=== PATIENT | male | born 1965 | race Caucasian/White ===

== ENCOUNTER → 2017-04-15 | Outpatient (CLI) | payer OTHER | LOC: BMCIMAGING 17:10 | PROVIDERS: ATTEND Family Medicine | DX: J02.9 Acute pharyngitis, unspecified (principal); M47.812 Spondylosis without myelopathy or radiculopathy, cervical region ==

== ENCOUNTER 2017-07-25 17:08 | Emergency (ER) | payer OTHER ==
[2017-07-25 17:15] VITALS: O2SAT 96
--- NOTE | 2017-07-25 17:43 | EDPHY ---
H & P Time Seen by Provider: 07/25/17 17:24 HPI/ROS: CHIEF COMPLAINT: Bilateral hand shakiness HISTORY OF PRESENT ILLNESS: 52-year-old male with a history of liver cancer presents with bilateral hand shakiness. Onset of a resting tremor in his hands yesterday. He has had the tremor before and the tremor is associated with an elevated ammonia level. He is currently treated for liver cancer at [facility]. 3 weeks ago he received a dose of immunotherapy. Laboratory studies were unremarkable at that time. His LFTs are reportedly abnormal with a bilirubin of 3. He has a 2.5 cm tumor in the liver, which has been stable for some time. Recently he has not been taking his lactulose as prescribed. He is supposed to take enough lactulose to have 3 bowel movements a day, but has decreased his lactulose dosing and has been having 1 bowel movement a day for quite some time. He has also been drinking less water than usual. No abdominal pain, nausea, vomiting. REVIEW OF SYSTEMS: Constitutional: No fever, no recent illness Eyes: No visual changes ENT: No sore throat Respiratory: No cough, no shortness of breath Cardiac: No chest pain Gastrointestinal: No nausea, no vomiting, no abdominal pain Genitourinary: no dysuria Musculoskeletal: No leg pain, no change in swelling Skin: No rash Neurological: No headache, no weakness Psychiatric: anxiety Past Medical/Surgical History: Liver cancer Hepatitis-C Social History: Smoking Status: Former smoker Physical Exam: General Appearance: Alert, pleasant Eyes: Pupils equal and round, no scleral icterus ENT, Mouth: Mucous membranes moist Neck: Normal inspection Respiratory: Lungs are clear to auscultation Cardiovascular: Regular rate and rhythm Gastrointestinal: Abdomen is soft and nontender, no ascites Neurological: A&O, nonfocal, normal gait Skin: Warm and dry, no rash Extremities: Nontender, 1+ edema Psychiatric: Mood and affect normal Constitutional: Initial Vital Signs Temperature (C) 36.7 C 07/25/17 17:12 Heart Rate 118 H 07/25/17 17:12 Respiratory Rate 20 07/25/17 17:12 Blood Pressure 120/96 H 07/25/17 17:12 O2 Sat (%) 96 07/25/17 17:12 O2 Delivery Mode Room Air Allergies/Adverse Reactions: No Known Allergies Allergy (Verified 07/25/17 17:12) Home Medications: Medication Instructions Recorded Furosemide [Lasix] 40 mg PO DAILY 05/14/15 Lactosium 05/14/15 Omeprazole [Prilosec 20 mg] 20 mg PO DAILY 05/14/15 Rifaximin [Xifaxan 200mg (RX)] 200 mg PO TID 05/14/15 Medical Decision Making ED Course/Re-evaluation: IV normal saline 1 L given. Laboratory results discussed with patient. Fortunately, the ammonia level is normal today. LFTs today are similar to LFTs on 05/07/2017. Tremor improved after IV hydration. He was encouraged to use lactulose as prescribed. Will f/u with oncologist. Differential Diagnosis: includes though not limited to hepatic encehalopathy, alcohol withdrawal, anxiety, stimulant usage. - Data Points Laboratory Results: Laboratory Results 07/25/17 18:00 07/25/17 18:00 Medications Given: Discontinued Medications Sodium Chloride (Ns) 1,000 mls @ 0 mls/hr IV ONCE ONE PRN Reason: Wide Open Stop: 07/25/17 18:20 Last Admin: 07/25/17 18:25 Dose: 1,000 mls Departure - Departure Disposition: Home, Routine, Self-Care Clinical Impression: Tremor of both hands Condition: Good Instructions: Tremors (ED) Additional Instructions: Drink plenty of fluids. Take lactulose as prescribed, with a goal have 3 bowel movements a day. Follow-up with your physician on Thursday. Return for worsening symptoms or any concerns. Referrals: Steffanie Ferrer MD [Primary Care Provider] - As per Instructions
[2017-07-25] MEDS ORDERED: NS 1,000 ML IV ONE (18:19)
[2017-07-25 18:20] LABS: % IMMATURE GRANULYOCYTES 0.2 % (0.0-1.1); ABSOLUTE IMMATURE GRANULOCYTES 0.01 10^3/uL (0.00-0.10); ADD DIFF? NO; ADD MORPH? NO; ADD SCAN? NO; ATYPICAL LYMPHOCYTE FLAG 10 (0-99); FRAGMENT RBC FLAG 20 (0-99); HEMATOCRIT 32.5 % (40.0-51.0); HEMOGLOBIN 10.5 g/dL (13.7-17.5); LEFT SHIFT FLG 0 (0-99); LIPEMIA HEMOLYSIS FLAG 80 (0-99); MEAN CELL HEMOGLOBIN 28.2 pg (27.9-34.1); MEAN CELL HEMOGLOBIN CONCENTR. 32.3 g/dL (32.4-36.7); MEAN CELL VOLUME 87.1 fL (81.5-99.8); PLATELET CLUMPS FLAG 0 (0-99); PLATELET COUNT 94 10^3/uL (150-400); RED BLOOD CELL COUNT 3.73 10^6/uL (4.40-6.38); RED CELL DISTRIBUTION WIDTH 17.1 % (11.5-15.2)
[2017-07-25 18:53] LABS: ALANINE AMINOTRANSFERASE 57 IU/L (21-72); ALBUMIN 2.7 g/dL (3.5-5.0); ALKALINE PHOSPHATASE 128 IU/L (38-126); ANION GAP 8 mEq/L (8-16); ASPARTATE AMINOTRANSFERASE 71 IU/L (17-59); BILIRUBIN,TOTAL 3.2 mg/dL (0.1-1.4); BILIRUBIN-CONJUGATED 0.9 mg/dL (0.0-0.5); BILIRUBIN-UNCONJUGATED 2.3 mg/dL (0.0-1.1); CALCIUM 8.8 mg/dL (8.5-10.4); CARBON DIOXIDE 22 mEq/l (22-31); CHLORIDE 110 mEq/L (97-110); CREATININE 0.8 mg/dL (0.7-1.3); GLOMERULAR FILTRATION RATE > 60; GLUCOSE 105 mg/dL (70-100); POTASSIUM 3.6 mEq/L (3.5-5.2); SODIUM 140 mEq/L (134-144); TOTAL PROTEIN 6.7 g/dL (6.3-8.2)
[2017-07-25 20:28] VITALS: BP 145/82; PULSE 98; RESP 20; TEMP 97.9
== END 2017-07-25 20:28 | disposition home or self-care (01) ==
DX: R25.1 Tremor, unspecified (principal); Z85.05 Personal history of malignant neoplasm of liver; Z87.891 Personal history of nicotine dependence
CPT/HCPCS: 96360; 99284; J1642

== ENCOUNTER 2017-08-28 15:59 | Inpatient (IN) | payer OTHER ==
[2017-08-28] MEDS ORDERED: NS 1,000 ML IV ONE ×4 (16:50)
--- NOTE | 2017-08-28 16:52 | EDPHY ---
H & P Stated Complaint: ABD PAIN/FEVER X 2 DAYS/HX CIRRHOSIS Time Seen by Provider: 08/28/17 16:15 HPI/ROS: CHIEF COMPLAINT: Abdominal pain, fever HISTORY OF PRESENT ILLNESS: The patient has a history of hepatitis, cirrhosis and liver cancer currently receiving chemotherapy at the [facility]. He presents to the ED with 2 days of atypical abdominal pain, fever, nausea and vomiting. The patient reports moderate to severe pain in his right lower quadrant. Past surgical history is significant for cholecystectomy and hernia repair surgery. The patient denies fever cough or congestion. The patient reportedly has been doing relatively well with his chemotherapy as an outpatient. He has not had a recent hospitalization. The patient denies dysuria but does report intermittent bouts of constipation and loose stool. REVIEW OF SYSTEMS: A comprehensive 10 point review of systems is otherwise negative aside from elements mentioned in the history of present illness. Source: Patient Exam Limitations: No limitations - Personal History Current Tetanus/Diphtheria Vaccine: Yes Tetanus Vaccine Date: 2005 - Medical/Surgical History Hx Asthma: No Hx Chronic Respiratory Disease: No Hx Diabetes: No Hx Cardiac Disease: No Hx Renal Disease: No Hx Cirrhosis: Yes Hx Alcoholism: No Hx HIV/AIDS: No Hx Splenectomy or Spleen Trauma: No Other PMH: Hep C. liver failure - Social History Smoking Status: Former smoker - Physical Exam Exam: General Appearance: Alert, appears uncomfortable Eyes: Pupils equal and round no pallor or injection ENT, Mouth: Dry mucous membranes Respiratory: There are no retractions, lungs are clear to auscultation Cardiovascular: Regular rate and rhythm Gastrointestinal: Distended, moderate tenderness to palpation in the right lower quadrant Neurological: A&O, normal motor function, normal sensory exam, normal cranial nerves Skin: Warm and dry, no rashes Musculoskeletal: Neck is supple nontender Extremities: symmetrical, full range of motion Constitutional: Initial Vital Signs Temperature (C) 39.2 C H 08/28/17 16:12 Heart Rate 136 H 08/28/17 16:12 Respiratory Rate 20 08/28/17 16:12 Blood Pressure 133/72 H 08/28/17 16:12 O2 Sat (%) 96 08/28/17 16:12 O2 Delivery Mode Room Air Allergies/Adverse Reactions: No Known Allergies Allergy (Verified 08/28/17 16:11) Home Medications: Medication Instructions Recorded Furosemide [Lasix] 40 mg PO DAILY 05/14/15 Lactosium 05/14/15 Omeprazole [Prilosec 20 mg] 20 mg PO DAILY 05/14/15 Rifaximin [Xifaxan 200mg (RX)] 200 mg PO TID 05/14/15 Medical Decision Making - Diagnostics Imaging Results: Imaging Impressions Abdomen Ultrasound 08/28/17 17:33 Impression: 1. Appendix not identified. 2. Small ascites. Results called to Dr. Kraig Parrish on 08/28/2017. ED Course/Re-evaluation: The patient presents to the ED with 2 days of fever and acute abdominal pain. The patient is noted to have fairly significant tenderness to palpation in the right lower quadrant. The patient had an IV established. In the ER, blood cultures x2 obtained. The patient had a nondiagnostic abdominal ultrasound. The patient was taken for CT scan of the abdomen pelvis which demonstrates an ascending colitis without evidence of appendicitis, perforation or obstruction. The patient does have evidence of sepsis with SIRS criteria (tachycardia, tachypnea and fever) + infection (ascending colitis). The patient's initial venous lactate was elevated at 2.7. The patient received IV fluid rehydration. The patient had no hypotension throughout his stay in the emergency department. A repeat lactic acid has been ordered. The patient had blood cultures x2 and his was started broad-spectrum antibiotics. The patient had an IV IV fentanyl and Dilaudid for pain management. The patient 's tachycardia did improve after IV fluids. Differential Diagnosis: Differential diagnosis considered includes severe sepsis, septic shock, appendicitis, perforation, obstruction, choledocholithiasis, colitis - Data Points Laboratory Results: Laboratory Results 08/28/17 16:35 08/28/17 16:35 08/28/17 08/28/17 08/28/17 19:25 16:53 16:35 WBC RBC Hgb Hct MCV MCH MCHC RDW Plt Count MPV Neut % (Auto) Lymph % (Auto) [place] % (Auto) Eos % (Auto) Baso % (Auto) Nucleat RBC Rel Count Absolute Neuts (auto) Absolute Lymphs (auto) Absolute Monos (auto) Absolute Eos (auto) Absolute Basos (auto) Absolute Nucleated RBC Immature Gran % Immature Gran # PT 26.4 SEC H SEC (12.0-15.0) INR 2.40 H (0.83-1.16) APTT 51.4 SEC H SEC (23.0-38.0) VBG Lactic Acid 2.5 mmol/L H mmol/L 2.7 mmol/L H mmol/L (0.7-2.1) (0.7-2.1) Sodium Potassium Chloride Carbon Dioxide Anion Gap BUN Creatinine Estimated GFR Glucose Calcium Total Bilirubin Conjugated Bilirubin Unconjugated Bilirubin AST ALT Alkaline Phosphatase Total Protein Albumin Lipase 08/28/17 08/28/17 16:35 16:35 WBC 7.57 10^3/uL 10^3/uL (3.80-9.50) RBC 3.56 10^6/uL L 10^6/uL (4.40-6.38) Hgb 10.3 g/dL L g/dL (13.7-17.5) Hct 30.7 % L % (40.0-51.0) MCV 86.2 fL fL (81.5-99.8) MCH 28.9 pg pg (27.9-34.1) MCHC 33.6 g/dL g/dL (32.4-36.7) RDW 16.9 % H % (11.5-15.2) Plt Count 55 10^3/uL L 10^3/uL (150-400) MPV TNP Neut % (Auto) 87.6 % H % (39.3-74.2) Lymph % (Auto) 3.2 % L % (15.0-45.0) [place] % (Auto) 8.5 % % (4.5-13.0) Eos % (Auto) 0.1 % L % (0.6-7.6) Baso % (Auto) 0.1 % L % (0.3-1.7) Nucleat RBC Rel Count 0.0 % % (0.0-0.2) Absolute Neuts (auto) 6.63 10^3/uL H 10^3/uL (1.70-6.50) Absolute Lymphs (auto) 0.24 10^3/uL L 10^3/uL (1.00-3.00) Absolute Monos (auto) 0.64 10^3/uL 10^3/uL (0.30-0.80) Absolute Eos (auto) 0.01 10^3/uL L 10^3/uL (0.03-0.40) Absolute Basos (auto) 0.01 10^3/uL L 10^3/uL (0.02-0.10) Absolute Nucleated RBC 0.00 10^3/uL 10^3/uL (0-0.01) Immature Gran % 0.5 % % (0.0-1.1) Immature Gran # 0.04 10^3/uL 10^3/uL (0.00-0.10) PT INR APTT VBG Lactic Acid Sodium 135 mEq/L mEq/L (134-144) Potassium 3.3 mEq/L mEq/L (3.3-5.0) Chloride 106 mEq/L mEq/L (97-110) Carbon Dioxide 20 mEq/l L mEq/l (22-31) Anion Gap 9 mEq/L mEq/L (8-16) BUN 12 mg/dL mg/dL (7-23) Creatinine 0.7 mg/dL mg/dL (0.7-1.3) Estimated GFR > 60 Glucose 108 mg/dL H mg/dL (70-100) Calcium 7.7 mg/dL L mg/dL (8.5-10.4) Total Bilirubin 4.2 mg/dL H mg/dL (0.1-1.4) Conjugated Bilirubin 1.6 mg/dL H mg/dL (0.0-0.5) Unconjugated Bilirubin 2.6 mg/dL H mg/dL (0.0-1.1) AST 70 IU/L H IU/L (17-59) ALT 77 IU/L H IU/L (21-72) Alkaline Phosphatase 126 IU/L IU/L (38-126) Total Protein 6.0 g/dL L g/dL (6.3-8.2) Albumin 2.6 g/dL L g/dL (3.5-5.0) Lipase 74 IU/L IU/L (23-300) Medications Given: Discontinued Medications Fentanyl (Sublimaze) 100 mcg IVP EDNOW ONE Stop: 08/28/17 18:15 Last Admin: 08/28/17 18:17 Dose: 100 mcg Fentanyl (Sublimaze) 100 mcg IVP EDNOW ONE Stop: 08/28/17 19:33 Last Admin: 08/28/17 19:33 Dose: 100 mcg Sodium Chloride (Ns) 1,000 mls @ 0 mls/hr IV EDNOW ONE; Wide Open PRN Reason: Protocol Stop: 08/28/17 16:51 Last Admin: 08/28/17 17:03 Dose: 1,000 mls Sodium Chloride (Ns) 1,000 mls @ 0 mls/hr IV EDNOW ONE; Wide Open PRN Reason: Protocol Stop: 08/28/17 16:51 Last Admin: 08/28/17 17:04 Dose: 1,000 mls Ketorolac Tromethamine (Toradol) 15 mg IVP EDNOW ONE Stop: 08/28/17 17:03 Last Admin: 08/28/17 17:05 Dose: 15 mg Departure - Departure Disposition: [facility] Inpatient Acute Clinical Impression: Severe sepsis, Colitis, Cirrhosis, Hepatic cancer Condition: Fair Referrals: Steffanie Ferrer MD [Primary Care Provider] - As per Instructions
[2017-08-28] MEDS ORDERED: KETOROLAC 15 MG/1 ML SDV ONE ×2 (16:59)
[2017-08-28 17:01] LABS: PLATELET COUNT 55 10^3/uL (150-400)
[2017-08-28] MEDS ORDERED: KETOROLAC 15 MG/1 ML SDV IVP ONE ×2 (17:02)
[2017-08-28 17:08] LABS: INR 2.4 (0.83-1.16); PROTIME(PATIENT) 26.4 SEC (12.0-15.0)
[2017-08-28] MEDS ORDERED: fentaNYL 100 MCG/2 ML INJ IVP ONE ×4 (18:14→19:32)
[2017-08-28] MEDS ORDERED: IOPAMIDOL (ISOVUE-300) 100 ML BTL ONE ×2 (18:36)
[2017-08-28] MEDS ORDERED: ERTAPENEM 1 GM in NS 100 ML IV ONE (19:25)
[2017-08-28] MEDS ORDERED: ONDANSETRON 4 MG/2 ML VIAL IVP PRN ×2 (22:18)
[2017-08-28] MEDS ORDERED: ONDANSETRON DISINTEGRATING 4 MG TAB PO PRN ×2 (22:18)
[2017-08-28] MEDS ORDERED: ACETAMINOPHEN 325 MG TAB PO PRN ×2 (22:18)
--- NOTE | 2017-08-28 22:25 | PDGENHP ---
History and Physical - Chief Complaint fever, abd pain - History of Present Illness 52 yo male with hx of hepatocellular carcinoma, hepatitis C, cirrhosis p/w several days of RLQ abd pain, fever, and poor PO. He has been receiving chemotherapy at the [place]. For about 2-3 days he has been having abd pain. First it was generalized but now mostly the RLQ. He has also felt feverish and has had N/V and poor oral intake. He denies any resp sx's including SOB, cough, congestion. Denies CP. He has chronic LE edema. He is having BM's. No urinary sx's PMHX: PER ABOVE PSHX: cholecystectomy Soc: from [place]. , former smoker FMhx: NC Labs/studies: CT Abd: Ascending colitis. No appendicitis, obstruction, or perforation CBC: thrombocytopenia INR: 2.45 Lactic Acid: elevated ED course: Ertapenem, IVF History Information - Allergies/Home Medication List Allergies/Adverse Reactions: No Known Allergies Allergy (Verified 08/28/17 16:11) Home Medications: Furosemide [Lasix] 40 mg PO DAILY 05/14/15 [Last Taken Unknown] Lactosium 05/14/15 [Last Taken Unknown] Omeprazole [Prilosec 20 mg] 20 mg PO DAILY 05/14/15 [Last Taken Unknown] Rifaximin [Xifaxan 200mg (RX)] 200 mg PO TID 05/14/15 [Last Taken Unknown] I have personally reviewed and updated: medical history, social history - Social History Smoking Status: Former smoker Review of Systems Review of Systems: ROS: 10pt was reviewed & negative except for what was stated in HPI & below Physical Exam Physical Exam: Temp Pulse Resp BP Pulse Ox 36.6 C 101 H 16 127/72 H 97 08/28/17 21:24 08/28/17 21:24 08/28/17 21:24 08/28/17 21:24 08/28/17 21:24 Constitutional: chronically ill appearing Eyes: PERRL, EOMI Ears, Nose, Mouth, Throat: dry mucous membranes Cardiovascular: regular rate and rhythym, edema Respiratory: no respiratory distress, no rales or rhonchi, clear to auscultation Gastrointestinal: tenderness (RLQ), No guarding, No rebound, No distension Skin: warm Musculoskeletal: full muscle strength, no muscle tenderness Neurologic: AAOx3 Psychiatric: interacting appropriately, not anxious, not encephalopathic Lab Data & Imaging Review 08/28/17 16:35 08/28/17 16:35 WBC 7.57 10^3/uL (3.80-9.50) 08/28/17 16:35 RBC 3.56 10^6/uL (4.40-6.38) L 08/28/17 16:35 Hgb 10.3 g/dL (13.7-17.5) L 08/28/17 16:35 Hct 30.7 % (40.0-51.0) L 08/28/17 16:35 MCV 86.2 fL (81.5-99.8) 08/28/17 16:35 MCH 28.9 pg (27.9-34.1) 08/28/17 16:35 MCHC 33.6 g/dL (32.4-36.7) 08/28/17 16:35 RDW 16.9 % (11.5-15.2) H 08/28/17 16:35 Plt Count 55 10^3/uL (150-400) L 08/28/17 16:35 MPV TNP 08/28/17 16:35 Neut % (Auto) 87.6 % (39.3-74.2) H 08/28/17 16:35 Lymph % (Auto) 3.2 % (15.0-45.0) L 08/28/17 16:35 [place] % (Auto) 8.5 % (4.5-13.0) 08/28/17 16:35 Eos % (Auto) 0.1 % (0.6-7.6) L 08/28/17 16:35 Baso % (Auto) 0.1 % (0.3-1.7) L 08/28/17 16:35 Nucleat RBC Rel Count 0.0 % (0.0-0.2) 08/28/17 16:35 Absolute Neuts (auto) 6.63 10^3/uL (1.70-6.50) H 08/28/17 16:35 Absolute Lymphs (auto) 0.24 10^3/uL (1.00-3.00) L 08/28/17 16:35 Absolute Monos (auto) 0.64 10^3/uL (0.30-0.80) 08/28/17 16:35 Absolute Eos (auto) 0.01 10^3/uL (0.03-0.40) L 08/28/17 16:35 Absolute Basos (auto) 0.01 10^3/uL (0.02-0.10) L 08/28/17 16:35 Absolute Nucleated RBC 0.00 10^3/uL (0-0.01) 08/28/17 16:35 Immature Gran % 0.5 % (0.0-1.1) 08/28/17 16:35 Immature Gran # 0.04 10^3/uL (0.00-0.10) 08/28/17 16:35 PT 26.4 SEC (12.0-15.0) H 08/28/17 16:35 INR 2.40 (0.83-1.16) H 08/28/17 16:35 APTT 51.4 SEC (23.0-38.0) H 08/28/17 16:35 VBG Lactic Acid 2.5 mmol/L (0.7-2.1) H 08/28/17 19:25 Sodium 135 mEq/L (134-144) 08/28/17 16:35 Potassium 3.3 mEq/L (3.3-5.0) 08/28/17 16:35 Chloride 106 mEq/L (97-110) 08/28/17 16:35 Carbon Dioxide 20 mEq/l (22-31) L 08/28/17 16:35 Anion Gap 9 mEq/L (8-16) 08/28/17 16:35 BUN 12 mg/dL (7-23) 08/28/17 16:35 Creatinine 0.7 mg/dL (0.7-1.3) 08/28/17 16:35 Estimated GFR > 60 08/28/17 16:35 Glucose 108 mg/dL (70-100) H 08/28/17 16:35 Calcium 7.7 mg/dL (8.5-10.4) L 08/28/17 16:35 Total Bilirubin 4.2 mg/dL (0.1-1.4) H 08/28/17 16:35 Conjugated Bilirubin 1.6 mg/dL (0.0-0.5) H 08/28/17 16:35 Unconjugated Bilirubin 2.6 mg/dL (0.0-1.1) H 08/28/17 16:35 AST 70 IU/L (17-59) H 08/28/17 16:35 ALT 77 IU/L (21-72) H 08/28/17 16:35 Alkaline Phosphatase 126 IU/L (38-126) 08/28/17 16:35 Total Protein 6.0 g/dL (6.3-8.2) L 08/28/17 16:35 Albumin 2.6 g/dL (3.5-5.0) L 08/28/17 16:35 Lipase 74 IU/L (23-300) 08/28/17 16:35 Assessment & Plan Assessment: #Ascending colitis, likely infectious #Advanced liver disease with coagulopathy, thrombocytopenia #pedal edema likely due to liver disease #SIRS criteria Plan: Admit Cont Ertapenem Gentle hydration hold Lasix for now Follow INR. f/u BCX full code
[2017-08-28] MEDS: oxyCODONE IR 5 MG TAB PO PRN ×2 (22:43)
--- NOTE | 2017-08-29 03:50 | PDMN ---
Medical Necessity Medical necessity: C/M review: est. > 2 MN LOS for eval and TX of acute and persistent ascending colitis, likely infectious, fevers, RLQ abdominal pain, SIRS requiring IV fluids in ED, ongoing IV Ertapenem, IV Morphine, comorbid advanced hepatocellular carcinoma with coagulopathy, thrombocytopenia, hx recent chemotherapy per H/P.
[2017-08-29] MEDS: oxyCODONE IR 5 MG TAB PO PRN ×8 (04:06→20:26)
[2017-08-29 06:07] LABS: PLATELET COUNT 52 10^3/uL (150-400)
[2017-08-29 06:20] LABS: INR 2.92 (0.83-1.16); PROTIME(PATIENT) 30.9 SEC (12.0-15.0)
[2017-08-29] MEDS ORDERED: RIFAXIMIN 200 MG TAB PO SCH ×2 (09:00)
[2017-08-29] MEDS ORDERED: PROTOCOL CALCIUM 1 DOSE IV PRN ×2 (13:57)
--- NOTE | 2017-08-29 14:22 | HOSPPROG ---
Hospitalist Progress Note Assessment/Plan: #Fever: colitis ascending/cecum on CT. May be related to Keytruda (last dose 10 days ago). Denies other infectious symptoms, no diarrhea. -blood cultures pending. Cont IV Cefepime, Flagyl -send off peritoneal studies to eval for SBP #Significant ascites: d/w Dr. Mcnulty. Will trial ileostomy bag per Dr. Mcnulty #HCC: followed by Dr. Tellez at [facility]. s/p TACE, chemo, on Keytruda #Hyperbilirubinemia: again may be due to Keytruda (most recently 2 per pt) #Hypocalcemia: check iCa #Cirrhosis: Rifaximin, lactulose. Hold diuretics with decreased PO, has mild distension #Anemia/thrombocytopenia: due to liver disease. h/o varices, denies any bleeding #Coagulopathy: due to cirrhosis, HCC #h/o esophageal varices: last EGD here, 2013. no active bleeding #Diet: ADAT #DVT ppx: SCDs #Disp: warrants inpatient admission with fever, requiring IV abx Subjective: abd pain improved today Objective: Vital Signs Temp Pulse Resp BP Pulse Ox 36.7 C 84 18 118/70 93 08/29/17 11:16 08/29/17 11:16 08/29/17 11:16 08/29/17 11:16 08/29/17 11:16 Laboratory Results 08/29/17 06:00 08/29/17 06:00 08/28/17 08/29/17 08/30/17 05:59 05:59 04:59 Intake Total 2450 Balance 2450 PT 30.9 SEC (12.0-15.0) H 08/29/17 06:00 INR 2.92 (0.83-1.16) H 08/29/17 06:00 - Physical Exam Constitutional: no apparent distress Eyes: icteric sclera Ears, Nose, Mouth, Throat: moist mucous membranes, dry mucous membranes Cardiovascular: regular rate and rhythym, no murmur, rub, or gallop Respiratory: no respiratory distress Gastrointestinal: normoactive bowel sounds, soft, non-tender abdomen, distension , No no palpable masses, No tenderness Genitourinary: no bladder fullness Skin: warm Musculoskeletal: full muscle strength Neurologic: AAOx3, CN II-XII Intact Psychiatric: interacting appropriately ICD10 Worksheet Patient Problems: Problems Problem Status Onset Cirrhosis Acute Colitis Acute Hepatic cancer Acute Severe sepsis Acute Ascites Active
[2017-08-29] MEDS: PANTOPRAZOLE SODIUM 40 MG TAB PO SCH ×2 (16:23)
[2017-08-29] MEDS ORDERED: CALCIUM GLUCONATE 50 ML IV ONE ×2 (16:27)
[2017-08-29] MEDS ORDERED: ERTAPENEM 1 GM in NS 100 ML IV SCH (18:00)
[2017-08-29] MEDS: CEFEPIME HCL 2 GM in D5W 100 ML IV SCH (20:29)
[2017-08-29] MEDS: RIFAXIMIN 550 MG TAB PO SCH ×2 (20:29)
[2017-08-30 04:45] LABS: PLATELET COUNT 73 10^3/uL (150-400)
[2017-08-30 04:53] LABS: INR 2.56 (0.83-1.16); PROTIME(PATIENT) 27.8 SEC (12.0-15.0)
[2017-08-30] MEDS: CEFEPIME HCL 2 GM in D5W 100 ML IV SCH (06:29)
[2017-08-30] MEDS: PANTOPRAZOLE SODIUM 40 MG TAB PO SCH ×2 (08:19)
[2017-08-30] MEDS: RIFAXIMIN 550 MG TAB PO SCH ×2 (08:19)
[2017-08-30] MEDS ORDERED: NON-FORMULARY NEW DRUG (Omeprazole [Prilosec 20 Mg] 20 MG) PO SCH ×2 (09:00)
[2017-08-30] MEDS ORDERED: CALCIUM GLUCONATE 50 ML IV ONE ×2 (10:02)
[2017-08-30 12:31] VITALS: BP 124/72; PULSE 83; RESP 17; TEMP 98.4; O2SAT 94
--- NOTE | 2017-08-30 14:12 | GDS ---
[f rep st] DISCHARGE SUMMARY DISCHARGE DIAGNOSES: 1. Fever. 2. Colitis of ascending/cecum. 3. Hepatocellular carcinoma on immunosuppression and chemo. 4. Hyperbilirubinemia. 5. Hypocalcemia. 6. Cirrhosis. 7. Anemia/thrombocytopenia. 8. Coagulopathy. HISTORY OF PRESENT ILLNESS: A pleasant 52-year-old male with history of HCC, cirrhosis, who was on Keytruda, as well as some sort of oral chemotherapy, presented with pain, fever, and poor p.o. intake. He is followed by Dr. Tellez at [facility]. He has had some abdominal pain, cramping, but mainly in the right lower quadrant. He has had some nausea, vomiting, nonbloody. No hematochezia or melena. Denied chest pain, shortness of breath. He has chronic lower extremity edema that is worse since being off his diuretics for 2 days. HOSPITAL COURSE BY PROBLEM: 1. Fever: Suspect secondary to colitis versus medication side effect. He is on Keytruda, which is an immunosuppressant, that can cause a side effect in itself. He has not had a fever in almost 48 hours. GI panel and blood cultures remain negative. Less likely CMV given minimal symptoms, but drawn before DC. Symptoms have improved on IV antibiotics. I will transition to Levaquin and Flagyl for a total of 7 days. He is to follow up with his primary chart writer at [facility]. 2. Mildly decompensated cirrhosis: He has been off his diuretics for a couple days with decreased p.o. intake. He may resume these. Resume rifaximin and lactulose. 3. Hyperbilirubinemia: Was elevated at 4.4 on admission, may be secondary to the Keytruda treated itself. This has trended down to 2.4 at the day of discharge. 4. HCC: Followed by Dr. Tellez, status post TAS chemo and on Keytruda. 5. Coagulopathy due to cirrhosis and hepatocellular carcinoma. PHYSICAL EXAM: VITAL SIGNS: Today, temperature 36.9, blood pressure 124/72, heart rate 80s, respirations 17, 94% on room air. GENERAL: Well appearing, smiling. HEENT: PERRLA. Moist mucous membranes. CV: Regular rate and rhythm. No murmurs, gallops, rubs. +2 lower extremity edema to the knee. LUNGS: Clear to auscultation. ABDOMEN: Soft, nontender. Mild distention. No tenderness. Positive bowel sounds. : No Bishop. No suprapubic tenderness. NEURO: 2 through 12 intact. PSYCH: Alert and oriented x3. MEDICATIONS: New medications: 1. Flagyl 500 mg t.i.d. 2. Levaquin 750 mg daily. 3. Oxycodone 5-10. FOLLOWUP: With Dr. Tellez at [facility]. Patient will call tomorrow morning. We will call patient if blood culture turns positive. Labs pending: CMV /[id number]/MODL MTDD
--- NOTE | 2017-08-30 14:12 | GDS ---
[f rep st] DISCHARGE SUMMARY DISCHARGE DIAGNOSES: 1. Fever. 2. Colitis of ascending/cecum. 3. Hepatocellular carcinoma on immunosuppression and chemo. 4. Hyperbilirubinemia. 5. Hypocalcemia. 6. Cirrhosis. 7. Anemia/thrombocytopenia. 8. Coagulopathy. HISTORY OF PRESENT ILLNESS: A pleasant 52-year-old male with history of HCC, cirrhosis, who was on Keytruda, as well as some sort of oral chemotherapy, presented with pain, fever, and poor p.o. intake. He is followed by Dr. Tellez at [facility]. He has had some abdominal pain, cramping, but mainly in the right lower quadrant. He has had some nausea, vomiting, nonbloody. No hematochezia or melena. Denied chest pain, shortness of breath. He has chronic lower extremity edema that is worse since being off his diuretics for 2 days. HOSPITAL COURSE BY PROBLEM: 1. Fever: Suspect secondary to colitis versus medication side effect. He is on Keytruda, which is an immunosuppressant, that can cause a side effect in itself. He has not had a fever in almost 48 hours. GI panel and blood cultures remain negative. Less likely CMV given minimal symptoms, but drawn before DC. Symptoms have improved on IV antibiotics. I will transition to Levaquin and Flagyl for a total of 7 days. He is to follow up with his primary mechanical project engineer at [facility]. 2. Mildly decompensated cirrhosis: He has been off his diuretics for a couple days with decreased p.o. intake. He may resume these. Resume rifaximin and lactulose. 3. Hyperbilirubinemia: Was elevated at 4.4 on admission, may be secondary to the Keytruda treated itself. This has trended down to 2.4 at the day of discharge. 4. HCC: Followed by Dr. Tellez, status post TAS chemo and on Keytruda. 5. Coagulopathy due to cirrhosis and hepatocellular carcinoma. PHYSICAL EXAM: VITAL SIGNS: Today, temperature 36.9, blood pressure 124/72, heart rate 80s, respirations 17, 94% on room air. GENERAL: Well appearing, smiling. HEENT: PERRLA. Moist mucous membranes. CV: Regular rate and rhythm. No murmurs, gallops, rubs. +2 lower extremity edema to the knee. LUNGS: Clear to auscultation. ABDOMEN: Soft, nontender. Mild distention. No tenderness. Positive bowel sounds. : No Bishop. No suprapubic tenderness. NEURO: 2 through 12 intact. PSYCH: Alert and oriented x3. MEDICATIONS: New medications: 1. Flagyl 500 mg t.i.d. 2. Levaquin 750 mg daily. 3. Oxycodone 5-10. FOLLOWUP: With Dr. Tellez at [facility]. Patient will call tomorrow morning. We will call patient if blood culture turns positive. Labs pending: CMV /[id number]/MODL MTDD
--- NOTE | 2017-08-30 15:47 | ASDISCHSUM ---
Discharge Information Plan Status:Home with No Needs Medically Cleared to Leave: Discharge Date:08/30/2017 02:21 PM CM D/C Disposition: ADT D/C Disposition:Home, Routine, Self-Care Projected Discharge Date:08/30/2017 02:21 PM Transportation at D/C: Discharge Delay Reason: Follow-Up Date:08/30/2017 02:21 PM Discharge Slot: Final Diagnosis: Placement Information Patient Contact Information Contact Name:JEANIE Relationship: Address:[address] City:[place] Alternate Phone: [facility]/Zip Code:[place] [address] Email: Financial Information Financial Class: Primary Plan Desc:MEDICARE INPATIENT Primary Plan Number:[id number] Secondary Plan Desc:ADRIANNE LUO POS HMO Secondary Plan Number:[id number] Assessment Information [facility] CM Progress Note CM Note CM Note Notes: Pt DC'd home today with no DC needs. Date Signed: 08/30/2017 03:46 PM Electronically Signed By:Kati Moore LCSW Intervention Information
--- NOTE | 2017-08-30 15:47 | ASDISCHSUM ---
Discharge Information Plan Status:Home with No Needs Medically Cleared to Leave: Discharge Date:08/30/2017 02:21 PM CM D/C Disposition: ADT D/C Disposition:Home, Routine, Self-Care Projected Discharge Date:08/30/2017 02:21 PM Transportation at D/C: Discharge Delay Reason: Follow-Up Date:08/30/2017 02:21 PM Discharge Slot: Final Diagnosis: Placement Information Patient Contact Information Contact Name:JEANIE Relationship: Address:[address] City:[place] Alternate Phone: [facility]/Zip Code:[place] [address] Email: Financial Information Financial Class: Primary Plan Desc:MEDICARE INPATIENT Primary Plan Number:[id number] Secondary Plan Desc:ADRIANNE LUO POS HMO Secondary Plan Number:[id number] Assessment Information [facility] CM Progress Note CM Note CM Note Notes: Pt DC'd home today with no DC needs. Date Signed: 08/30/2017 03:46 PM Electronically Signed By:Kati Moore LCSW Intervention Information
--- NOTE | 2017-08-30 15:47 | ASDISCHSUM ---
Discharge Information Plan Status:Home with No Needs Medically Cleared to Leave: Discharge Date:08/30/2017 02:21 PM CM D/C Disposition: ADT D/C Disposition:Home, Routine, Self-Care Projected Discharge Date:08/30/2017 02:21 PM Transportation at D/C: Discharge Delay Reason: Follow-Up Date:08/30/2017 02:21 PM Discharge Slot: Final Diagnosis: Placement Information Patient Contact Information Contact Name:JEANIE Relationship: Address:[address] City:[place] Alternate Phone: [facility]/Zip Code:[place] [address] Email: Financial Information Financial Class: Primary Plan Desc:MEDICARE INPATIENT Primary Plan Number:[id number] Secondary Plan Desc:ADRIANNE LUO POS HMO Secondary Plan Number:[id number] Assessment Information [facility] CM Progress Note CM Note CM Note Notes: Pt DC'd home today with no DC needs. Date Signed: 08/30/2017 03:46 PM Electronically Signed By:Kati Moore LCSW Intervention Information
== END 2017-08-30 14:21 | disposition home or self-care (01) | DRG 392 ==
LOC: F1N 21:10
PROVIDERS: ADMIT Family Medicine; ATTEND Internal Medicine
DX: K52.9 Noninfective gastroenteritis and colitis, unspecified (principal); C22.0 Liver cell carcinoma; K74.60 Unspecified cirrhosis of liver; K75.9 Inflammatory liver disease, unspecified; D69.6 Thrombocytopenia, unspecified; E83.51 Hypocalcemia; D68.4 Acquired coagulation factor deficiency; Z87.891 Personal history of nicotine dependence
CPT/HCPCS: 86644-90; 86645-90; 96365; J0610; J0692; J0696; J1335; J1642; J1885; J3010; Q9967

== ENCOUNTER 2017-09-14 22:08 | Inpatient (IN) | payer OTHER ==
[2017-09-14] MEDS ORDERED: HYDROmorphONE/DILAUDID 1 MG/ML INJ IVP ONE ×2 (22:23→23:25)
[2017-09-14] MEDS ORDERED: ONDANSETRON 4 MG/2 ML VIAL IVP ONE (22:23)
[2017-09-14] MEDS ORDERED: NS 1,000 ML IV ONE (22:24)
--- NOTE | 2017-09-14 22:30 | EDPHY ---
H & P Stated Complaint: R kidney stone? abd pain; CA Hx, has port HPI/ROS: HPI CHIEF COMPLAINT: Left flank pain sudden onset sharp stabbing. Radiating into groin. HISTORY OF PRESENT ILLNESS: This patient very pleasant 52-year-old male, history of liver CA, undergoes treatment at [facility], he presents emergency room sudden onset this evening of left flank pain it is left-sided sharp stabbing radiating into the left groin with associated nausea but no vomiting. States feels exactly like his previous kidney stone. He has no fever. He denies any significant abdominal pain except for left flank pain. Past Medical History: Liver CA undergoes treatment at [facility], kidney stone, hepatocellular cancer, colitis, cirrhosis, anemia, thrombocytopenia Past Surgical History: Right chest port Social History: Denies daily use drugs alcohol tobacco products. Family History: Noncontributory ROS REVIEW OF SYSTEMS: A comprehensive 10 point review of systems is otherwise negative aside from elements mentioned in the history of present illness. Exam Constitutional appears well nontoxic triage nursing summary reviewed, vital signs reviewed, awake/alert. Eyes normal conjunctivae and sclera, EOMI, PERRLA. HENT normal inspection, atraumatic, moist mucus membranes, no epistaxis, neck supple/ no meningismus, no raccoon eyes. Respiratory clear to auscultation bilaterally, normal breath sounds, no respiratory distress, no wheezing. Cardiovascular rate normal, regular rhythm, no murmur, no edema, distal pulses normal. Gastrointestinal soft, non-tender, no rebound, no guarding, normal bowel sounds, no distension, no pulsatile mass. Genitourinary tender palpation left CVA. Musculoskeletal no midline vertebral tenderness, full range of motion, no calf swelling, no tenderness of extremities, no meningismus, good pulses, neurovascularly intact. Skin pink, warm, & dry, no rash, skin atraumatic. Neurologic awake, alert and oriented x 3, AAOx3, moves all 4 extremities equally, motor intact, sensory intact, CN II-XII intact, normal cerebellar, normal vision, normal speech. Psychiatric normal mood/affect. Heme/Lymph/Immune no lymphadenopathy. Differential diagnosis includes but is not limited to and in no particular order : Bowel obstruction, appendicitis, gallbladder disease, diverticulitis, colitis , enteritis, perforated viscus, gastritis, GERD, esophagitis, urinary tract infection, pyelonephritis, kidney stones Medical Decision Making: Plan for this patient IV establishment IV fluid bolus , Dilaudid for pain control 1 mg, Zofran for nausea, check urinalysis, check abdominal blood work including lactic acid, CT abdomen pelvis without contrast for left flank pain. Re-evaluate. Re-evaluation: 1246: Patient to having ongoing left flank pain. He does have a 6 mm left ureteral stone with hydronephrosis. Rather severe. After multiple attempts to to control his pain, he still has ongoing left flank pain. Will admit him to the hospital service for pain control most likely Urology to see. Patient has extensive comorbidities. 0111: Spoke with Dr. Hargrove, with Urology plan on consult in the morning for this patient. Additionally I consulted hospitalist service Dr. Reed For Admission. She agrees to admit. Urine culture sent. 1 g IV Rocephin given. Urinalysis does not indicate infection however the patient is immunocompromised undergoing chemotherapy. Source: Patient - Personal History Current Tetanus/Diphtheria Vaccine: Yes Tetanus Vaccine Date: 2005 - Medical/Surgical History Hx Asthma: No Hx Chronic Respiratory Disease: No Hx Diabetes: No Hx Cardiac Disease: No Hx Renal Disease: No Hx Cirrhosis: Yes Hx Alcoholism: No Hx HIV/AIDS: No Hx Splenectomy or Spleen Trauma: No Other PMH: PMHx: Hep C; Liver Cancer, liver failure, kidney stones - Social History Smoking Status: Former smoker Constitutional: Initial Vital Signs Temperature (C) 35.8 C L 09/14/17 22:10 Heart Rate 102 H 09/14/17 22:10 Respiratory Rate 24 H 09/14/17 22:10 Blood Pressure 139/74 H 09/14/17 22:10 O2 Sat (%) 100 09/14/17 22:10 O2 Delivery Mode Room Air O2 (L/minute) 2 Allergies/Adverse Reactions: No Known Allergies Allergy (Verified 08/28/17 16:11) Home Medications: Medication Instructions Recorded Furosemide [Lasix 20 MG (*)] 20 mg PO DAILY 08/29/17 Lactulose [Enulose] 20 gm PO QID PRN 08/29/17 Omeprazole [Prilosec 20 mg] 40 mg PO DAILY 08/29/17 Rifaximin [Xifaxan] 550 mg PO BID 08/29/17 Lidocaine/Prilocaine [Emla Cream] 1 francis TP Q21D 09/15/17 Ondansetron Odt [Zofran Odt 4 mg 4 mg PO Q4 PRN #60 tab 09/15/17 (*)] Pembrolizumab [Keytruda] 0 mg IV Q21D 09/15/17 Spironolactone [Aldactone 25 MG 100 mg PO DAILY 09/15/17 (*)] Tamsulosin HCl [Flomax 0.4 MG (*)] 0.4 mg PO DAILY #10 cap 09/15/17 oxyCODONE IR [Oxycodone Ir (*)] 5 - 10 mg PO Q4 PRN #60 tab 09/15/17 traMADol [Ultram 50 mg (*)] 50 mg PO DAILY PRN 09/15/17 Medical Decision Making - Data Points Laboratory Results: Laboratory Results 09/15/17 05:00 09/15/17 05:00 Medications Given: Hydromorphone HCl (Dilaudid) 0.5 - 1 mg IVP Q2HRS PRN PRN Reason: Pain, Severe Unable to Take PO Stop: 09/25/17 02:28 Last Admin: 09/15/17 23:16 Dose: 1 mg Levofloxacin/Dextrose (Levaquin 500 Mg (Premix)) 100 mls @ 100 mls/hr IV Q24H [place] PRN Reason: Protocol Stop: 10/16/17 00:00 Last Admin: 09/16/17 00:04 Dose: 100 mls Sodium Chloride (Ns) 1,000 mls @ 75 mls/hr IV CONT [place] Stop: 03/14/18 02:29 Last Admin: 09/15/17 05:01 Dose: 1,000 mls Ketorolac Tromethamine (Toradol) 15 mg IVP Q6HRS PRN PRN Reason: Pain, Inflammatory Stop: 09/20/17 15:18 Last Admin: 09/15/17 21:15 Dose: 15 mg Lidocaine/Prilocaine (Emla Cream) 1 francis TP Q21D [facility] Stop: 03/14/18 12:59 Last Admin: 09/15/17 16:30 Dose: Not Given Oxycodone HCl (Oxycodone Ir) 5 - 10 mg PO Q3 PRN PRN Reason: Pain, Severe Able to Take PO Stop: 09/25/17 10:31 Last Admin: 09/15/17 15:12 Dose: 10 mg Rifaximin (Xifaxan) 550 mg PO BID [place] PRN Reason: Protocol Stop: 10/15/17 12:59 Last Admin: 09/15/17 21:13 Dose: 550 mg Spironolactone (Aldactone) 100 mg PO DAILY [facility] Stop: 03/14/18 12:59 Last Admin: 09/15/17 16:30 Dose: Not Given Discontinued Medications Hydromorphone HCl (Dilaudid) 1 mg IVP EDNOW ONE Stop: 09/14/17 22:24 Last Admin: 09/14/17 22:38 Dose: 1 mg Hydromorphone HCl (Dilaudid) 1 mg IVP EDNOW ONE Stop: 09/14/17 23:26 Last Admin: 09/14/17 23:31 Dose: 1 mg Hydromorphone HCl (Dilaudid) 1 mg IVP EDNOW ONE Stop: 09/15/17 00:46 Last Admin: 09/15/17 01:19 Dose: 1 mg Sodium Chloride (Ns) 1,000 mls @ 0 mls/hr IV EDNOW ONE; Wide Open PRN Reason: Protocol Stop: 09/14/17 22:25 Last Admin: 09/14/17 22:37 Dose: 1,000 mls Sodium Chloride (Ns) 1,000 mls @ 0 mls/hr IV ONCE ONE PRN Reason: Wide Open Stop: 09/15/17 00:21 Last Admin: 09/15/17 00:29 Dose: 1,000 mls Ceftriaxone Sodium/Dextrose (Rocephin 1 Gm (Premix)) 50 mls @ 100 mls/hr IV EDNOW ONE PRN Reason: Protocol Stop: 09/15/17 01:32 Last Admin: 09/15/17 01:18 Dose: 50 mls Ketorolac Tromethamine (Toradol) 15 mg IVP EDNOW ONE Stop: 09/14/17 23:56 Last Admin: 09/14/17 23:55 Dose: 15 mg Ondansetron HCl (Zofran) 4 mg IVP EDNOW ONE Stop: 09/14/17 22:24 Last Admin: 09/14/17 22:37 Dose: 4 mg Phytonadione (Vitamin K) 5 mg PO ONCE ONE Stop: 09/15/17 06:17 Last Admin: 09/15/17 10:40 Dose: Not Given Departure - Departure Disposition: [facility] Acute Clinical Impression: Flank pain, Kidney stone on left side Condition: Fair
[2017-09-14 22:58] LABS: % IMMATURE GRANULYOCYTES 0.5 % (0.0-1.1); ABSOLUTE IMMATURE GRANULOCYTES 0.02 10^3/uL (0.00-0.10); ADD DIFF? NO; ADD MORPH? NO; ADD SCAN? NO; ATYPICAL LYMPHOCYTE FLAG 0 (0-99); FRAGMENT RBC FLAG 20 (0-99); HEMATOCRIT 30.2 % (40.0-51.0); HEMOGLOBIN 9.7 g/dL (13.7-17.5); LEFT SHIFT FLG 0 (0-99); LIPEMIA HEMOLYSIS FLAG 80 (0-99); MEAN CELL HEMOGLOBIN CONCENTR. 32.1 g/dL (32.4-36.7); MEAN PLATELET VOLUME 13.2 fL (8.7-11.7); PLATELET CLUMPS FLAG 10 (0-99); PLATELET COUNT 114 10^3/uL (150-400); RED BLOOD CELL COUNT 3.47 10^6/uL (4.40-6.38); RED CELL DISTRIBUTION WIDTH 18.1 % (11.5-15.2)
[2017-09-14 23:03] LABS: ALANINE AMINOTRANSFERASE 49 IU/L (21-72); ALBUMIN 2.6 g/dL (3.5-5.0); ALKALINE PHOSPHATASE 139 IU/L (38-126); ANION GAP 9 mEq/L (8-16); ASPARTATE AMINOTRANSFERASE 54 IU/L (17-59); BILIRUBIN,TOTAL 2.6 mg/dL (0.1-1.4); BILIRUBIN-CONJUGATED 0.8 mg/dL (0.0-0.5); BILIRUBIN-UNCONJUGATED 1.8 mg/dL (0.0-1.1); CALCIUM 7.6 mg/dL (8.5-10.4); CARBON DIOXIDE 21 mEq/l (22-31); CHLORIDE 103 mEq/L (97-110); CREATININE 0.7 mg/dL (0.7-1.3); GLOMERULAR FILTRATION RATE > 60; GLUCOSE 188 mg/dL (70-100); POTASSIUM 3.3 mEq/L (3.5-5.2); SODIUM 133 mEq/L (134-144)
[2017-09-14 23:06] LABS: INR 2.08 (0.83-1.16); PROTIME(PATIENT) 23.5 SEC (12.0-15.0)
[2017-09-14 23:07] LABS: APTT 54.6 SEC (23.0-38.0)
[2017-09-14] MEDS ORDERED: KETOROLAC 15 MG/1 ML SDV ONE (23:53)
[2017-09-14] MEDS ORDERED: KETOROLAC 15 MG/1 ML SDV IVP ONE (23:55)
[2017-09-15] MEDS ORDERED: NS 1,000 ML IV ONE (00:20)
[2017-09-15 00:30] LABS: COLOR AMBER; LEUKOCYTE ESTERASE,URINE NEGATIVE (NEGATIVE); NITRITE,URINE NEGATIVE (NEGATIVE)
[2017-09-15 00:36] LABS: MUCUS 1+ /lpf (NONE-1+); RBC,URINE 50-182 /hpf (0-3)
[2017-09-15] MEDS ORDERED: HYDROmorphONE/DILAUDID 1 MG/ML INJ IVP ONE (00:45)
[2017-09-15] MEDS ORDERED: PROMETHAZINE HCL 25 MG/ML INJ IVP PRN (02:30)
[2017-09-15] MEDS ORDERED: LORazepam 2 MG/ML INJ IVP PRN (02:30)
[2017-09-15] MEDS ORDERED: ONDANSETRON 4 MG/2 ML VIAL IVP PRN (02:30)
[2017-09-15] MEDS ORDERED: NS 1,000 ML IV SCH (02:30)
[2017-09-15] MEDS ORDERED: ACETAMINOPHEN 325 MG TAB PO PRN (02:30)
[2017-09-15] MEDS: HYDROmorphONE/DILAUDID 1 MG/ML INJ IVP PRN ×7 (02:38→23:16)
[2017-09-15 05:29] LABS: % IMMATURE GRANULYOCYTES 0.5 % (0.0-1.1); ABSOLUTE IMMATURE GRANULOCYTES 0.02 10^3/uL (0.00-0.10); ADD DIFF? NO; ADD MORPH? NO; ADD SCAN? NO; ATYPICAL LYMPHOCYTE FLAG 10 (0-99); FRAGMENT RBC FLAG 20 (0-99); HEMATOCRIT 28.6 % (40.0-51.0); HEMOGLOBIN 9.2 g/dL (13.7-17.5); LEFT SHIFT FLG 0 (0-99); LIPEMIA HEMOLYSIS FLAG 80 (0-99); MEAN CELL HEMOGLOBIN 28.4 pg (27.9-34.1); MEAN CELL HEMOGLOBIN CONCENTR. 32.2 g/dL (32.4-36.7); MEAN CELL VOLUME 88.3 fL (81.5-99.8); MEAN PLATELET VOLUME 13.7 fL (8.7-11.7); PLATELET CLUMPS FLAG 0 (0-99); PLATELET COUNT 107 10^3/uL (150-400); RED BLOOD CELL COUNT 3.24 10^6/uL (4.40-6.38); RED CELL DISTRIBUTION WIDTH 18.1 % (11.5-15.2)
[2017-09-15 05:46] LABS: ANION GAP 5 mEq/L (8-16); CALCIUM 7.2 mg/dL (8.5-10.4); CARBON DIOXIDE 25 mEq/l (22-31); CHLORIDE 109 mEq/L (97-110); CREATININE 0.7 mg/dL (0.7-1.3); GLOMERULAR FILTRATION RATE > 60; GLUCOSE 127 mg/dL (70-100); POTASSIUM 4.7 mEq/L (3.5-5.2); SODIUM 139 mEq/L (134-144)
[2017-09-15] MEDS ORDERED: PHYTONADIONE 2.5 MG/2.5 ML ORAL UDL PO ONE (06:16)
--- NOTE | 2017-09-15 08:44 | PDGENHP ---
History and Physical - Chief Complaint left flank pain - History of Present Illness Source - Patient provides history and appears reliable. EMR reviewed and case discussed with ED provider. HPI - 52 yo M with pmhx significant for HCV s/p tx, Hepatocellular carcinoma undergoing immunotherapy, cirrhosis with associated coagulopathy, anemia and previous history of kidney stones who presents to the ED today with c/o sudden onset of severe sharp and constant left flank and LLQ abdominal pain. Patient reports he was trying to get to sleep when pain came on suddenly. He denies any associated nausea/vomiting. no fevers/chills. no dysuria/hematuria. In the ED patient received appropriate pain medication with improvement but not resolution of his flank/abdominal pain which is now more waxing and waning in nature. History Information - Allergies/Home Medication List Allergies/Adverse Reactions: No Known Allergies Allergy (Verified 08/28/17 16:11) Home Medications: Furosemide [Lasix 20 MG (*)] 20 mg PO DAILY 08/29/17 [Last Taken 08/27/17] Lactulose [Enulose] 20 gm PO QID PRN 08/29/17 [Last Taken Unknown] Omeprazole [Prilosec 20 mg] 20 mg PO DAILY 08/29/17 [Last Taken 08/28/17] Rifaximin [Xifaxan] 550 mg PO BID 08/29/17 [Last Taken 08/28/17 09:00] Spironolactone 100 mg PO DAILY 08/29/17 [Last Taken 08/28/17] I have personally reviewed and updated: family history, medical history, social history, surgical history - Past Medical History Additional medical history: HCV s/p tx unknown source per patient. Cirrhosis with associated coagulopathy including anemia, thrombocytopenia, abnormal coags. hepatocellulary carcinoma followed by [place]. nephrolithiasis. colitis - Surgical History Additional surgical history: Right port placement. TIPS. choleycystectomy - Family History Additional family history: denies any family history of cancer or liver problems. - Social History Smoking Status: Former smoker Alcohol Use: None Drug Use: None Additional social history: lives with . COR - FULL. desires Lea Musa to act as proxy if needed. Review of Systems Review of Systems: ROS: 10pt was reviewed & negative except for what was stated in HPI & below Constitutional: Reports: malaise. Denies: chills, fever Gastrointestinal: Reports: other (see hpi). Denies: vomitting, diarrhea, nausea Genitourinary: Reports: flank pain (left flank radiating to LLQ.). Denies: burning, dysuria, hematuria Hematologic/Lymphatic: Reports: anemia Physical Exam Physical Exam: Selected Entries 09/14/17 22:10 Heart Rate 102 H Respiratory 24 H Rate O2 Sat (%) 100 Temperature (C) 35.8 C L Blood Pressure 139/74 H Mean Arterial 95 Pressure (MAP) O2 Delivery Room Air Mode Temperature Axillary Source Temp Pulse Resp BP Pulse Ox 36.6 C 90 18 132/71 H 98 09/15/17 08:15 09/15/17 08:15 09/15/17 08:15 09/15/17 08:15 09/15/17 08:15 O2 (L/minute) 2 Constitutional: no apparent distress, chronically ill appearing, uncomfortable, other (Patient appears fatigued, uncomfortable and acutely ill but nontoxic) Eyes: PERRL, EOMI, icteric sclera, No scleral injection Ears, Nose, Mouth, Throat: dry mucous membranes, other (no nasal discharge. ), No poor dentition Cardiovascular: regular rate and rhythym, no murmur, rub, or gallop, systolic murmur, tachycardia (90s), edema (1+ pitting bilateral lower extremities) Peripheral Pulses: 2+: dorsalis-pedis (R), dorsalis-pedis (L) Respiratory: no respiratory distress, no rales or rhonchi, reduced air movement (decreased at bases bilaterally. ), No inspiratory crackles Gastrointestinal: tenderness (LLQ no rebound/guarding), distension, other ( hypoactive bowel sounds. ), No ascites Genitourinary: no bladder tenderness, No jo in urethra Skin: warm, no rashes or abrasions, other (jaundiced), No abrasion, No erythema , No rash Musculoskeletal: no muscle tenderness, generalized weakness, No pain with ROM Neurologic: AAOx3, sensation intact bilaterally, CN II-XII Intact, other ( nonfocal exam. ) Psychiatric: interacting appropriately, not anxious, flat affect (patient appears fatigued and uncomfortable), other (pleasant and cooperative. thought process/content/questions appropriate. ), No poor insight, No poor judgement, No poor memory Lab Data & Imaging Review 09/15/17 05:00 09/15/17 05:00 Laboratory Tests 09/14/17 09/14/17 09/14/17 00:09 22:40 22:40 WBC 4.37 RBC 3.47 L Hct 30.2 L MCV 87.0 MCH 28.0 MCHC 32.1 L RDW 18.1 H Plt Count 114 L MPV 13.2 H Neut % (Auto) 61.8 Lymph % (Auto) 20.8 Greeley % (Auto) 12.8 Eos % (Auto) 3.9 Baso % (Auto) 0.2 L Nucleat RBC Rel Count 0.0 Absolute Neuts (auto) 2.70 Absolute Lymphs (auto) 0.91 L Absolute Monos (auto) 0.56 Absolute Eos (auto) 0.17 Absolute Basos (auto) 0.01 L Absolute Nucleated RBC 0.00 Immature Gran % 0.5 Immature Gran # 0.02 PT 23.5 H INR 2.08 H APTT 54.6 H Sodium Potassium Chloride Carbon Dioxide Anion Gap BUN Creatinine Estimated GFR Glucose Calcium Total Bilirubin Conjugated Bilirubin Unconjugated Bilirubin AST ALT Alkaline Phosphatase Total Protein Albumin Lipase Urine Color Urine Appearance Urine pH Ur Specific Palmer Urine Protein Urine Ketones Urine Blood Urine Nitrate Urine Bilirubin Urine Urobilinogen Ur Leukocyte Esterase Urine RBC Urine WBC Ur Epithelial Cells Not Reported Urine Mucus Urine Glucose 09/14/17 09/15/17 22:40 00:09 WBC RBC Hct MCV MCH MCHC RDW Plt Count MPV Neut % (Auto) Lymph % (Auto) Greeley % (Auto) Eos % (Auto) Baso % (Auto) Nucleat RBC Rel Count Absolute Neuts (auto) Absolute Lymphs (auto) Absolute Monos (auto) Absolute Eos (auto) Absolute Basos (auto) Absolute Nucleated RBC Immature Gran % Immature Gran # PT INR APTT Sodium 133 L Potassium 3.3 L Chloride 103 Carbon Dioxide 21 L Anion Gap 9 BUN 9 Creatinine 0.7 Estimated GFR > 60 Glucose 188 H Calcium 7.6 L Total Bilirubin 2.6 H Conjugated Bilirubin 0.8 H Unconjugated Bilirubin 1.8 H AST 54 ALT 49 Alkaline Phosphatase 139 H Total Protein 6.0 L Albumin 2.6 L Lipase 115 Urine Color LAUREN Urine Appearance HAZY Urine pH 6.0 Ur Specific Palmer 1.034 H Urine Protein 2+ H Urine Ketones TRACE H Urine Blood 2+ H Urine Nitrate NEGATIVE Urine Bilirubin NEGATIVE Urine Urobilinogen 2.0 H Ur Leukocyte Esterase NEGATIVE Urine RBC 50-182 H Urine WBC 5-10 H Ur Epithelial Cells Urine Mucus 1+ Urine Glucose 1+ H WBC 4.20 10^3/uL (3.80-9.50) 09/15/17 05:00 RBC 3.24 10^6/uL (4.40-6.38) L 09/15/17 05:00 Hgb 9.2 g/dL (13.7-17.5) L 09/15/17 05:00 Hct 28.6 % (40.0-51.0) L 09/15/17 05:00 MCV 88.3 fL (81.5-99.8) 09/15/17 05:00 MCH 28.4 pg (27.9-34.1) 09/15/17 05:00 MCHC 32.2 g/dL (32.4-36.7) L 09/15/17 05:00 RDW 18.1 % (11.5-15.2) H 09/15/17 05:00 Plt Count 107 10^3/uL (150-400) L 09/15/17 05:00 MPV 13.7 fL (8.7-11.7) H 09/15/17 05:00 Neut % (Auto) 77.5 % (39.3-74.2) H 09/15/17 05:00 Lymph % (Auto) 11.2 % (15.0-45.0) L 09/15/17 05:00 Greeley % (Auto) 9.8 % (4.5-13.0) 09/15/17 05:00 Eos % (Auto) 0.5 % (0.6-7.6) L 09/15/17 05:00 Baso % (Auto) 0.5 % (0.3-1.7) 09/15/17 05:00 Nucleat RBC Rel Count 0.0 % (0.0-0.2) 09/15/17 05:00 Absolute Neuts (auto) 3.26 10^3/uL (1.70-6.50) 09/15/17 05:00 Absolute Lymphs (auto) 0.47 10^3/uL (1.00-3.00) L 09/15/17 05:00 Absolute Monos (auto) 0.41 10^3/uL (0.30-0.80) 09/15/17 05:00 Absolute Eos (auto) 0.02 10^3/uL (0.03-0.40) L 09/15/17 05:00 Absolute Basos (auto) 0.02 10^3/uL (0.02-0.10) 09/15/17 05:00 Absolute Nucleated RBC 0.00 10^3/uL (0-0.01) 09/15/17 05:00 Immature Gran % 0.5 % (0.0-1.1) 09/15/17 05:00 Immature Gran # 0.02 10^3/uL (0.00-0.10) 09/15/17 05:00 PT 23.5 SEC (12.0-15.0) H 09/14/17 22:40 INR 2.08 (0.83-1.16) H 09/14/17 22:40 APTT 54.6 SEC (23.0-38.0) H 09/14/17 22:40 Sodium 139 mEq/L (134-144) 09/15/17 05:00 Potassium 4.7 mEq/L (3.5-5.2) 09/15/17 05:00 Chloride 109 mEq/L (97-110) 09/15/17 05:00 Carbon Dioxide 25 mEq/l (22-31) 09/15/17 05:00 Anion Gap 5 mEq/L (8-16) L 09/15/17 05:00 BUN 11 mg/dL (7-23) 09/15/17 05:00 Creatinine 0.7 mg/dL (0.7-1.3) 09/15/17 05:00 Estimated GFR > 60 09/15/17 05:00 Glucose 127 mg/dL (70-100) H 09/15/17 05:00 Calcium 7.2 mg/dL (8.5-10.4) L 09/15/17 05:00 Total Bilirubin 2.6 mg/dL (0.1-1.4) H 09/14/17 22:40 Conjugated Bilirubin 0.8 mg/dL (0.0-0.5) H 09/14/17 22:40 Unconjugated Bilirubin 1.8 mg/dL (0.0-1.1) H 09/14/17 22:40 AST 54 IU/L (17-59) 09/14/17 22:40 ALT 49 IU/L (21-72) 09/14/17 22:40 Alkaline Phosphatase 139 IU/L (38-126) H 09/14/17 22:40 Total Protein 6.0 g/dL (6.3-8.2) L 09/14/17 22:40 Albumin 2.6 g/dL (3.5-5.0) L 09/14/17 22:40 Lipase 115 IU/L (23-300) 09/14/17 22:40 Urine Color LAUREN 09/15/17 00:09 Urine Appearance HAZY 09/15/17 00:09 Urine pH 6.0 (5.0-7.5) 09/15/17 00:09 Ur Specific Palmer 1.034 (1.002-1.030) H 09/15/17 00:09 Urine Protein 2+ (NEGATIVE) H 09/15/17 00:09 Urine Ketones TRACE (NEGATIVE) H 09/15/17 00:09 Urine Blood 2+ (NEGATIVE) H 09/15/17 00:09 Urine Nitrate NEGATIVE (NEGATIVE) 09/15/17 00:09 Urine Bilirubin NEGATIVE (NEGATIVE) 09/15/17 00:09 Urine Urobilinogen 2.0 EU (0.2-1.0) H 09/15/17 00:09 Ur Leukocyte Esterase NEGATIVE (NEGATIVE) 09/15/17 00:09 Urine RBC 50-182 /hpf (0-3) H 09/15/17 00:09 Urine WBC 5-10 /hpf (0-3) H 09/15/17 00:09 Ur Epithelial Cells Not Reported 09/14/17 00:09 Urine Mucus 1+ /lpf (NONE-1+) 09/15/17 00:09 Urine Glucose 1+ (NEGATIVE) H 09/15/17 00:09 Imaging Review: CT Scan of the Urinary Tracts (Abdomen and Pelvis Without Contrast) Clinical Indication: Left flank pain. History of stones. Technique: Multidetector helical CT imaging was performed from the kidneys to the urinary bladder without contrast, using dose reduction technology. Findings: Abdomen: A stone of the mid left ureter, at the level of L4, measures 5 mm AP x 3 mm transverse x 6 mm longitudinal, causing mild to moderate left hydronephrosis. This stone was present on the previous CT abdomen and pelvis from August 28, 2017, when it was causing no hydronephrosis. Previously shown severe thickening of the cecum and ascending colon has resolved. Minimal trace of ascites is present, improved from August 28. Transjugular intrahepatic portosystemic shunt, cholecystectomy, hepatic cirrhosis, splenomegaly, and enlargement of splenic and portal vein are unchanged. The lung bases are clear. Pelvis: No masses, free fluid, or free air. Impression: 1. Stone in mid left ureter. 2. Chronic liver disease with portal hypertension. 3. Transjugular intrahepatic portosystemic shunt and cholecystectomy. I telephoned results to Blaire Schulte, answering for Nico Ventura, at 2340 hours. Attention: This CT examination is specifically designed to evaluate patients who are clinically suspected of having acute obstructive uropathy. This examination does not use radiographic contrast , and as such, provides only a limited evaluation of the abdomen, pelvis and retroperitoneum. If there is further clinical suspicion for pathological conditions other than obstructive uropathy, a complete CT evaluation of the abdomen and pelvis utilizing intravenous, oral, and rectal contrast should be considered. Assessment & Plan Assessment: #Obstructing kidney stone - 6mm left. Urology was consulted from the ED and will plan to see patient this AM. Given his history of cirrhosis, cancer and coagulopathy I am unsure if they will assess him as candidate for intervention even with reversal. will hold transfusion at this time and give Vit K PO until we can further discuss plan with them. At this time patient continues to have pain. He has been given a dose of rocephin and will continue this given patient history of immunotherapy. He does not meet sirs criteria at this time. #hydroureter - as above. #Flank pain (Acute) - dilaudid, ativan prn. #coagulopathy - vitamin K right now. Patient will be type and screened should urology plan for intervention. #anemia - baseline is unknown. patient with microscopy hematuria and denies any GI bleeding. h/h on AM labs were stable. continue to monitor. type and screened as above. #thrombocytopenia - mildly declined. no evidence of active bleeding. continue to monitor. #hyponatremia - likely some component of hypovolemia. patient mucous membranes slightly dry. does not appear severely overloaded as far as thirdspacing. Will given some gentle hydration. AM Na already improved. patient will notify if he feels increasingly edematous. #hypokalemia - improved without replacement. will monitor #hyperglycemia - nonfasting lab this AM. no hx of DM II. continue to monitor. further evaluation if remains persistently elevated. #hyperbilirubinemia - related to cirrhosis and hepatocellular ca. #cirrhosis - monitor fluid status as above. resume patient home diuretics was stabilized. #hypoalbuminemia - 2/2 cirrhosis. continue to monitor. FEN - IVF for gentle hydration while npo. monitor fluid status closely. electrolyte replacement will be ordered but corrected after fluids. NPO at this time pending urology recommendations. PPX - SCDs. holding anticoagulation 2/2 coagulopathy as well as potentially perioperatively. COR - FULL. Lea Musa is MDPOA. Dispo - Admit to observation pending urology recommendations.
--- NOTE | 2017-09-15 10:01 | ASMTCMCOM ---
CM Note CM Note Notes: Patient admitted w L flank pain, found to have a 6mm obstructing kidney stone. He is an immunotherapy patient at [facility] (hepatocellular cancer). Plan is TBD; he is stable on the floor right now. Patient lives with his Rekha and is independent normally. I do not anticipate any discharge needs, but if any arise, Case Management will assist. Date Signed: 09/15/2017 10:01 AM Electronically Signed By:Monika Garcia RN
[2017-09-15] MEDS ORDERED: ONDANSETRON DISINTEGRATING 4 MG TAB PO PRN (10:31)
--- NOTE | 2017-09-15 10:35 | GCON ---
[f rep st] CONSULTATION REASON FOR CONSULTATION: I have been asked to see this gentleman by Marcie Reed for assessment of e valuation of left ureteral calculus. The patient was admitted via the emergency room because of left flank pain. SOURCE OF INFORMATION: From the patient, as well as the chart, and CAT scan review. HISTORY OF PRESENT ILLNESS: A 52-year-old gentleman who has had hep C, status post transplant. He h as had hepatocellular carcinoma, undergoing immunotherapy, has cirrhosis and coagulopathy. He develo ped left abdominal pain, and had a CAT scan that revealed a 6 mm left proximal ureteral calculus, wit h some mild hydronephrosis. He was admitted for pain control. His history is as noted above. MEDICATIONS: He is on Lasix, lactulose, Prilosec, Xifaxan, and spironolactone. PAST MEDICAL HISTORY: Positive for hepatitis C virus, cirrhosis, associated with coagulopathy, throm bocytopenia, hepatocellular carcinomas, and is followed at the [facility]. PAST SURGICAL HISTORY: He previously had a right port placement, a TIPS, cholecystectomy. FAMILY HISTORY: Denied for stones. SOCIAL HISTORY: He is a former smoker, presently does not drink or use drugs. , lives with h is , full . REVIEW OF SYSTEMS: GENERAL: He denies nausea, vomiting, chills, or fevers. : He has had no svetlana turia. He has had a history of stones in the past, that he passed spontaneously. HEMATOLOGIC: He h as anemia. GI: History is noted. PHYSICAL EXAM: VITAL SIGNS: Stable. LUNGS: His respiratory breathing is unlabored. ABDOMEN: Without rebound or guarding. LOWER EXTREMITIES: Has mild edema. DATA: I have reviewed his CT scan in detail, and it shows that he has the left proximal ureteral elsa culus with mild hydronephrosis. No stranding. His creatinine was 0.7, with a BUN 11, and CO2 of 25, calcium of 7.2, total bilirubin 2.6, albumin 2. 6. His white blood count 4.2, with hematocrit of 28.6, and platelet count 107. IMPRESSION: I have discussed with him the options of therapy, with him having the stones noted. He is asymptomatic at the present time, and prefers no intervention. He may request to be discharged ho me and then have followup at the [facility], where the majority of his care is being coordinated. If he has recurrent pain or problems, I would be happy to intervene with ureteroscopy. At the present time, he is not a candidate for extracorporeal shockwave lithotrip sy, and the stone is a 5-6 mm stone and spontaneous passage has been discussed as potential, but is n ot totally possible. He appears to be well informed and he will discuss the matter with his doctors at the [facility] before proceeding with any intervention at this t [facility]. /[id number]/MODL
[2017-09-15] MEDS ORDERED: oxyCODONE IR 5 MG TAB PO PRN (12:57)
[2017-09-15] MEDS ORDERED: traMADol 50 MG TAB PO PRN (12:57)
[2017-09-15] MEDS ORDERED: NON-FORMULARY NEW DRUG (Lactulose [Enulose] 20 GM) PO PRN (12:57)
[2017-09-15] MEDS ORDERED: LIDOCAINE/PRILOCAINE 1 EACH CRTUBE TP SCH (13:00)
[2017-09-15] MEDS ORDERED: NON-FORMULARY NEW DRUG (Omeprazole [Prilosec 20 Mg] 40 MG) PO SCH (13:00)
[2017-09-15] MEDS ORDERED: LACTULOSE 20 GM/30 ML UDCUP PO PRN (13:23)
[2017-09-15] MEDS: oxyCODONE IR 5 MG TAB PO PRN ×2 (13:48→15:12)
[2017-09-15] MEDS: RIFAXIMIN 550 MG TAB PO SCH ×2 (13:48→21:13)
[2017-09-15] MEDS: KETOROLAC 15 MG/1 ML SDV IVP PRN ×2 (15:28→21:15)
--- NOTE | 2017-09-15 16:22 | HOSPPROG ---
Hospitalist Progress Note Assessment/Plan: DIAGNOSES: -acute kidney stone with ureteral colic, hydronephrosis -history of hepatocellular carcinoma, currently receiving immunotherapy -coagulopathy, anemia, and low platelets due to liver disease -mild hyperglycemia -hypokalemia, improved PLANS: -initially the patient desired to go home assess symptoms seemed very mild, to see him back passed the stone and return if necessary for removal; at this point his pain is increased enough that he has decided he will need to stay here to have ongoing management of pain. I have asked the nursing staff to notify Dr. Frye of the patient's ongoing pain and desire to remain here for ongoing care, and suspect he may need surgical removal of this stone at 6 mm -continue IV hydration, analgesics and nausea medicines as needed -Recheck metabolic panel in the morning -Hemoglobin A1c SUBJECTIVE: Still having ongoing left-sided flank pain of varying degree but at this moment it is fairly severe Some nausea no vomiting No fever symptoms OBJECTIVE Vitals reviewed: No fevers noted, vitals stable [employer], my review: Exam: alert oriented skin warm dry color ok resps not labored lungs clear BSs heart regular abd soft nondistended nontender, bowel sounds present limbs warm, no edema iv site ok Laboratory data: Potassium better this morning Objective: Vital Signs Temp Pulse Resp BP Pulse Ox 36.6 C 77 17 125/73 H 94 09/15/17 12:07 09/15/17 12:07 09/15/17 12:07 09/15/17 12:07 09/15/17 12:07 Laboratory Results 09/15/17 05:00 09/15/17 05:00 09/14/17 09/15/17 09/16/17 06:59 06:59 06:59 Intake Total 1999 Balance 1999 PT 23.5 SEC (12.0-15.0) H 09/14/17 22:40 INR 2.08 (0.83-1.16) H 09/14/17 22:40 ICD10 Worksheet Patient Problems: Problems Problem Status Onset Flank pain Acute Kidney stone on left side Acute Ascites Active Cirrhosis Acute Colitis Acute Hepatic cancer Acute Severe sepsis Acute
[2017-09-15] MEDS: SPIRONOLACTONE 25 MG TAB PO SCH (16:30)
--- NOTE | 2017-09-15 19:27 | PDMN ---
Medical Necessity Medical necessity: C/M review: est. > 2 MN LOS for eval and TX of acute kidney stone with ureteral colic, hydronephrosis with worsening symptoms, ongoing fairly severe left sided flank pain, patient will likely require 2016 surgical intervention, ongoing IV pain medications, IV fluids, pain management, comorbid hx hepatocellular carcinoma currently receiving immunotherapy, coagulopathy, anemia, low platelets due to liver disease per Hospitalist progress note.
[2017-09-16] MEDS ORDERED: levOFLOXACIN 500 MG/DEXTROSE 100 ML IV SCH
[2017-09-16] MEDS: KETOROLAC 15 MG/1 ML SDV IVP PRN ×2 (05:40→12:00)
[2017-09-16] MEDS: HYDROmorphONE/DILAUDID 1 MG/ML INJ IVP PRN ×5 (05:40→10:13)
--- NOTE | 2017-09-16 06:24 | PDANEPAE ---
ANE History of Present Illness 52 yo male with obstructing L ureteral stone. ANE Past Medical History - Cardiovascular History Hx Hypertension: No Hx Arrhythmias: No Hx Chest Pain: No - Pulmonary History Hx COPD: No Hx Asthma/Reactive Airway Disease: No Hx Recent Upper Respiratory Infection: No Hx Oxygen in Use at Home: No Hx Sleep Apnea: No Sleep Apnea Screening Result - Last Documented: Negative - Endocrine History Hx Diabetes: No Hypothyroid: No Endocrine History Comment: Currently blood sugar elevated - may be secondary to acute illness, HgBA1C being checked. - Liver History Hx Hepatic Disorders: Yes Hepatic History Comment: hepatitis C s/p tx, hepatocellular carcinoma receiving immunotherapy, cirrhosis s/p TIPS. Pt chronically ill from liver dysfunction. - Cancer History Hx Cancer: Yes Cancer History Comment: hepatocellular carcinoma/cirrhosis followed at [facility]. - GI History GERD: mild - Chronic Pain History Chronic Pain: No - Surgical History Prior Surgeries: TIPS, Port placement, cholecystectomy ANE Review of Systems Review of Systems: - Systems Constitutional: Reports: other (jaundice, fatigue) Cardiac: Reports: edema (non-cardiac edema - secondary to low oncotic pressure) Skin: Reports: change in color (jaundice due to elevated bilirubin) ANE Patient History - Allergies Allergies/Adverse Reactions: No Known Allergies Allergy (Verified 08/28/17 16:11) - Home Medications Home medications: home medication list seen and reviewed Home Medications: Furosemide [Lasix 20 MG (*)] 20 mg PO DAILY 08/29/17 [Last Taken 09/13/17] Lactulose [Enulose] 20 gm PO QID PRN 08/29/17 [Last Taken 09/13/17] Omeprazole [Prilosec 20 mg] 40 mg PO DAILY 08/29/17 [Last Taken 09/14/17] Rifaximin [Xifaxan] 550 mg PO BID 08/29/17 [Last Taken 09/14/17 09:00] Lidocaine/Prilocaine [Emla Cream] 1 francis TP Q21D 09/15/17 [Last Taken 09/14/17] Pembrolizumab [Keytruda] 0 mg IV Q21D 09/15/17 [Last Taken 09/14/17] Spironolactone [Aldactone 25 MG (*)] 100 mg PO DAILY 09/15/17 [Last Taken ] traMADol [Ultram 50 mg (*)] 50 mg PO DAILY PRN 09/15/17 [Last Taken Unknown] - NPO status NPO Since - Liquids (Date): 09/16/17 NPO Since - Liquids (Time): 00:00 NPO Since - Solids (Date): 09/15/17 NPO Since - Solids (Time): 23:00 - Anes Hx Anes Hx: no prior problems - Smoking Hx Smoking Status: Former smoker Marijuana use: No - Alcohol Use Alcohol Use: None - Family Anes Hx Family Anes Hx: neg - N/A ANE Labs/Vital Signs - Labs Result Diagrams: 09/15/17 05:00 09/15/17 05:00 - Labs - CBC HGB: chronic anema - Labs - BMP Glucose: elevated despite NPO - Vital Signs Blood Pressure: 123/70 Heart Rate: 80 Respiratory Rate: 16 O2 Sat (%): 89 Height: 185.42 cm Weight: 100.1 kg ANE Physical Exam - Airway Neck exam: FROM Mallampati Score: Class 2 Mouth exam: normal dental/mouth exam - Pulmonary Pulmonary: clear to auscultation - Cardiovascular Cardiovascular: tachycardia - ASA Status ASA Status: IV ANE Anesthesia Plan Anesthesia Plan: GA w LMA (ProSeal LMA)
[2017-09-16] MEDS ORDERED: LR 1,000 ML IV ONE (06:32)
[2017-09-16] MEDS ORDERED: IOPAMIDOL (ISOVUE-M 300) 15 ML VIAL ONE (06:56)
[2017-09-16] MEDS ORDERED: LIDOCAINE 2% JELLY 20 ML (UROJECT) ONE (06:56)
--- NOTE | 2017-09-16 07:02 | PDHPUP ---
History & Physical Update H&P update statement: This history and physical update is based on an assessment of the patient which was completed after admission or registration (within 24 hours), but prior to the surgery/procedure. H&P update: H&P reviewed & patient examined, no change in patient's condition since H&P completed
[2017-09-16] MEDS ORDERED: fentaNYL 100 MCG/2 ML INJ IVP ONE (07:06)
[2017-09-16] MEDS ORDERED: fentaNYL 100 MCG/2 ML INJ ONE ×3 (07:13→07:17)
[2017-09-16] MEDS ORDERED: LIDOCAINE 2% 5 ML SDV ONE (07:18)
[2017-09-16] MEDS ORDERED: PROPOFOL/EMULSION 500 MG/50 ML BOTTLE IV ONE (07:18)
[2017-09-16] MEDS ORDERED: DEXAMETHASONE 4 MG/ML VIAL ONE (07:19)
[2017-09-16] MEDS ORDERED: PROPOFOL 200 MG/20 ML VIAL ONE (08:10)
[2017-09-16] MEDS ORDERED: ONDANSETRON 4 MG/2 ML VIAL IVP PRN (08:20)
[2017-09-16] MEDS ORDERED: fentaNYL 100 MCG/2 ML INJ IVP PRN (08:20)
[2017-09-16] MEDS ORDERED: ALBUTEROL 3 ML DEYVIAL IH PRN (08:20)
[2017-09-16] MEDS ORDERED: NALOXONE HCL 0.4 MG/ML INJ IVP PRN (08:20)
[2017-09-16] MEDS ORDERED: oxyCODONE IR 5 MG TAB PO PRN (08:21)
--- NOTE | 2017-09-16 08:33 | POSTOPPROG ---
Post Op Note Date of Operation: 09/16/17 Surgeon: Colby Frye Anesthesia: LMA Pre-op Diagnosis: stone Procedure: ureteroscopy + stent Inf/Abcess present in the surg proc area at time of surgery?: No EBL: Minimal Drains: Other (stent) Specimen(s): none--dictated
--- NOTE | 2017-09-16 08:48 | POSTANESTH ---
Post Anesthetic Evaluation Cardiovascular Status: Normal, Stable Respiratory Status: Normal, Stable Level of Consciousness/Mental Status: Can Participate in Eval, Mildly Sleepy, Arousable Pain Control: Adequate, Prn Tx Ordered Nausea/Vomiting Control: Adequate, Prn Tx Ordered Complications Possibly Related to Anesthesia: None Noted
[2017-09-16] MEDS ORDERED: HYDROmorphONE/DILAUDID 1 MG/ML INJ ONE (08:55)
[2017-09-16] MEDS ORDERED: FUROSEMIDE 20 MG TAB PO SCH (09:00)
[2017-09-16] MEDS ORDERED: PANTOPRAZOLE SODIUM 40 MG TAB PO SCH (09:00)
--- NOTE | 2017-09-16 10:05 | GOP ---
[f rep st] OPERATIVE REPORT DATE OF OPERATION: 09/16/2017 SURGEON: Colby Frye MD PREOPERATIVE DIAGNOSIS: left ureteral stone POSTOPERATIVE DIAGNOSIS: same PROCEDURE PERFORMED: ureteroscopy, laser litho, stent, fluoroscopy FINDINGS: stone in ureter and nephrocalcinosis DESCRIPTION OF PROCEDURE: Patient underwent general anesthesia. He was prepped and draped in normal sterile fashion after appropriate time-out. The urethra had some mild large-caliber stricturing. Prostate was normal. Bladder had no tumor, stones, foreign bodies, or diverticula. The left ureteral orifice was cannulated with a Pollack catheter. The ureteral stone was noted at the transverse process of L4, and I passed a wire up that went beyond and then dilated the intramural ureter and the ureter with a ureteral access sheath. I was able to pass the flexible scope up to the stone and fragment it into parts, and then the stone floated up into the kidney. I was able to go in and fragment the stone into multiple pieces. He did have Kingston plaques in several papillae that I fragmented with the Holmium laser. A total energy of 383 joules used. 13 minutes of laser time was utilized. We used a 200 micron fiber, 8 pulses per second, 10 perez, and at the end of the procedure, the stone had been fragmented. He did have a lot of cloudiness in the renal pelvis urine, so at that point, because of that and some of the inflammation of the renal pelvis and the impaction of the stone in the ureter, I elected to place a 4.7 multi-length stent that curled in the renal pelvis, curled in the bladder. Uro-Jet placed in urethra. Bishop catheter placed. Will have him be seen in the office in approximately a week for stent removal, and the catheter to be removed later today and discharge per hospitalist. The stone appeared to be uric acid in nature and may have had a small calcium oxalate nidus in the center, and then the Kingston plaques also had kind of a uric acid appearance. May be related to dehydration and chemotherapy and comorbid medical issues. He tolerated the procedure well and will be transferred to recovery room after waking from his general anesthesia. /[id number]/MODL MTDD
[2017-09-16] MEDS: oxyCODONE IR 5 MG TAB PO PRN ×3 (10:22→16:49)
[2017-09-16 11:11] VITALS: RESP 18
[2017-09-16] MEDS: SPIRONOLACTONE 25 MG TAB PO SCH (11:50)
[2017-09-16] MEDS: RIFAXIMIN 550 MG TAB PO SCH (11:52)
[2017-09-16 12:02] LABS: % IMMATURE GRANULYOCYTES 0.3 % (0.0-1.1); ABSOLUTE IMMATURE GRANULOCYTES 0.01 10^3/uL (0.00-0.10); ADD DIFF? NO; ADD MORPH? NO; ADD SCAN? NO; ATYPICAL LYMPHOCYTE FLAG 0 (0-99); FRAGMENT RBC FLAG 20 (0-99); HEMATOCRIT 31.2 % (40.0-51.0); HEMOGLOBIN 9.7 g/dL (13.7-17.5); LEFT SHIFT FLG 0 (0-99); LIPEMIA HEMOLYSIS FLAG 80 (0-99); MEAN CELL HEMOGLOBIN CONCENTR. 31.1 g/dL (32.4-36.7); MEAN CELL VOLUME 89.9 fL (81.5-99.8); MEAN PLATELET VOLUME 13.4 fL (8.7-11.7); PLATELET CLUMPS FLAG 20 (0-99); PLATELET COUNT 103 10^3/uL (150-400); RED BLOOD CELL COUNT 3.47 10^6/uL (4.40-6.38); RED CELL DISTRIBUTION WIDTH 18.3 % (11.5-15.2)
[2017-09-16 12:22] LABS: ALANINE AMINOTRANSFERASE 53 IU/L (21-72); ALBUMIN 2.1 g/dL (3.5-5.0); ALKALINE PHOSPHATASE 106 IU/L (38-126); ANION GAP 6 mEq/L (8-16); ASPARTATE AMINOTRANSFERASE 72 IU/L (17-59); BILIRUBIN,TOTAL 2.6 mg/dL (0.1-1.4); CALCIUM 7.4 mg/dL (8.5-10.4); CARBON DIOXIDE 23 mEq/l (22-31); CHLORIDE 110 mEq/L (97-110); CREATININE 0.7 mg/dL (0.7-1.3); GLOMERULAR FILTRATION RATE > 60; GLUCOSE 132 mg/dL (70-100); POTASSIUM 4.6 mEq/L (3.5-5.2); SODIUM 139 mEq/L (134-144); TOTAL PROTEIN 5.4 g/dL (6.3-8.2)
[2017-09-16 12:34] LABS: BILIRUBIN-CONJUGATED 0.8 mg/dL (0.0-0.5); BILIRUBIN-UNCONJUGATED 1.8 mg/dL (0.0-1.1)
[2017-09-16 15:20] VITALS: BP 129/73; PULSE 89; TEMP 98.2; O2SAT 93
--- NOTE | 2017-09-16 15:22 | ASMTCMCOM ---
CM Note CM Note Notes: Pt had surgery for stone removal today. Pt will likely DC with no needs. C/M available if DC needs change. Date Signed: 09/16/2017 03:21 PM Electronically Signed By:Kati Moore LCSW
--- NOTE | 2017-09-16 15:26 | PDDCSUM ---
Discharge Summary Discharge Summary: 52 yo male with hx of Hepatocellular carcinoma admitted with Left obstructing ureteral stone and ureteral colic with e/o Hydronephrosis. Required Lithotripsy with ureteral stent placement on the day of discharge. Postoperatively he has done well with adequate pain mgm. Bishop was removed. He is voiding freely. He will be d/c to home with plan for f/u in one week with Dr. dixon. At that time, they can discuss possible stent removal. He is being treated with Levaquin x 7 days DDX: -acute kidney stone with ureteral colic, hydronephrosis -history of hepatocellular carcinoma, currently receiving immunotherapy -coagulopathy, anemia, and low platelets due to liver disease -hypokalemia, improved Exam: NAD AAOX3 RRR CTA B S/NT/ND NO LE EDEMA MEDS: SEE MED REC F/U: PER ABOVE TOTAL TIME SPENT ON DISCHARGE IS 35 MINUTES
== END 2017-09-16 17:34 | disposition home or self-care (01) | DRG 694 ==
LOC: INTOOBSV 09-15 01:04 → F1N 09-15 01:42 → OBSVTOIN 09-15 17:19
PROVIDERS: ADMIT Family Medicine; ATTEND Family Medicine
PROC: 0TF78ZZ Fragmentation in Left Ureter, Via Natural or Artificial Opening Endoscopic (ICD-10-PCS; principal; 2017-09-16 07:15)
PROC: 0T778DZ Dilation of Left Ureter with Intraluminal Device, Via Natural or Artificial Opening Endoscopic (ICD-10-PCS; principal; 2017-09-16 07:15)
DX: N13.2 Hydronephrosis with renal and ureteral calculous obstruction (principal); C22.0 Liver cell carcinoma; D68.9 Coagulation defect, unspecified; D63.8 Anemia in other chronic diseases classified elsewhere; E87.6 Hypokalemia; E87.1 Hypo-osmolality and hyponatremia; K74.60 Unspecified cirrhosis of liver; K76.6 Portal hypertension; R73.9 Hyperglycemia, unspecified; E88.09 Other disorders of plasma-protein metabolism, not elsewhere classified
CPT/HCPCS: 96374; C1758; C1769; C1894; C2625; G0378; J0696; J1100; J1170; J1642; J1885; J1956; J2405; J2704; J3010; Q9967

== ENCOUNTER → 2017-11-16 | Outpatient (CLI) | payer OTHER | LOC: BMCIMAGING 08:52 | PROVIDERS: ATTEND Internal Medicine | DX: I82.890 Acute embolism and thrombosis of other specified veins (principal); K76.89 Other specified diseases of liver ==